=== PATIENT | male | born 1945 | race Caucasian/White ===

== ENCOUNTER 2016-11-15 09:47 | Emergency (ER) | payer MEDICARE, BC ==
[2016-11-15] MEDS ORDERED: SODIUM CHLORIDE 0.9% 1,000 ML IV ONE (09:58)
[2016-11-15 10:22] LABS: BASOPHILS # (AUTO) 0.1 10^3/uL (0.0-0.1); BASOPHILS % (AUTO) 0.9 %; EOSINOPHILS # (AUTO) 0.2 10^3/uL (0.0-0.7); HCT - HEMATOCRIT 39.9 % (42.0-52.0); HGB - HEMOGLOBIN 13.8 g/dL (14.0-18.0); LYMPHOCYTES # (AUTO) 1.2 10^3/uL (1.5-3.5); LYMPHOCYTES % (AUTO) 15.7 %; MEAN CORPUSCULAR HEMOGLOBIN 32.8 pg (27.0-31.0); MEAN CORPUSCULAR HGB CONC 34.5 g/dL (32.0-36.0); MEAN CORPUSCULAR VOLUME 95.1 fL (80.0-94.0); MEAN PLATELET VOLUME 8.1 fL (7.4-11.4); MONOCYTES # (AUTO) 0.6 10^3/uL (0.0-1.0); MONOCYTES % (AUTO) 7.9 %; NEUTROPHILS # (AUTO) 5.7 10^3/uL (1.5-6.6); NEUTROPHILS % (AUTO) 72.5 %; RED CELL DISTRIBUTION WIDTH 13.9 % (12.0-15.0); UNCORRECTED WHITE BLOOD COUNT 7.8 x10^3/uL; WHITE BLOOD COUNT 7.8 x10^3/uL (4.8-10.8)
--- NOTE | 2016-11-15 10:25 | ED Physician Documentation ---
History of Present Illness - Stated complaint Stated Complaint: STOMACH PX - Chief complaint Chief Complaint: Abd Pain - Additonal information Additional information: hx from pt healthy 71 male prior abd surgery = hernia hx diverticulitis 7 yr ago few days worsening LLQ pain no fever NVD urinary sx blood in stool Review of Systems Constitutional: denies: Fever, Chills Cardiac: denies: Chest pain / pressure Respiratory: denies: Dyspnea GI: reports: Abdominal Pain. denies: Nausea, Vomiting, Diarrhea, Bloody / black stool Endocrine: denies: Easy bruising / bleeding Immunocompromised: denies: Immunocompromised PD PAST MEDICAL HISTORY - Past Medical History Past Medical History: Yes Cardiovascular: High cholesterol GI: Diverticulitis - Past Surgical History Past Surgical History: Yes General: Colonoscopy, Other Ortho: Knee replacement - Present Medications Home Medications: Ambulatory Orders Medication Instructions Recorded Confirmed Amox/Clav 875/125 [Augmentin] 1 each PO Q12H #20 tablet 11/15/16 Aspirin Chewable [[place] 81 mg PO DAILY 11/15/16 11/15/16 Aspirin] Atorvastatin [Lipitor] 10 mg ORAL DAILY 11/15/16 11/15/16 Losartan [Cozaar] 25 mg PO DAILY 11/15/16 11/15/16 Quercetin Dihydrate 1 gm MC DAILY PRN 11/15/16 11/15/16 Saw [place] 160 mg PO DAILY 11/15/16 11/15/16 - Allergies Allergies/Adverse Reactions: Allergies Allergy/AdvReac Type Severity Reaction Status Date / Time No Known Drug Allergies Allergy Verified 11/15/16 09:54 - Social History Does the pt smoke?: No Smoking Status: Never smoker Does the pt drink ETOH?: Yes ETOH Use: Wine Does the pt have substance abuse?: No - Immunizations Immunizations are current?: Yes PD ED PE NORMAL - Vitals Vital signs reviewed: Yes - Cardiac Cardiac: RRR - Respiratory Respiratory: No respiratory distress, Clear bilaterally - Abdomen Abdomen: Soft, Other (TTP LLQ with guarding) - Derm Derm: Normal color - Neuro Neuro: Alert and oriented X 3 Results - Vitals Vitals: Vital Signs - 24 hr 11/15/16 11/15/16 09:51 11:17 Temperature 37.4 C Heart Rate 62 63 Respiratory 18 18 Rate Blood Pressure 135/84 H 115/79 O2 Saturation 98 97 Oxygen O2 Source Room air - Labs Labs: Laboratory Tests 11/15/16 11/15/16 11/15/16 10:06 10:06 11:30 WBC 7.8 RBC 4.20 L Hgb 13.8 L Hct 39.9 L MCV 95.1 H MCH 32.8 H MCHC 34.5 RDW 13.9 Plt Count 171 MPV 8.1 Neut # 5.7 Lymph # 1.2 L [place] # 0.6 Eos # 0.2 Baso # 0.1 Absolute Nucleated RBC 0.00 Nucleated RBCs 0.0 Sodium 136 Potassium 4.3 Chloride 104 Carbon Dioxide 24 Anion Gap 8.0 BUN 16 Creatinine 0.7 Estimated GFR (MDRD) 111 Glucose 119 H Calcium 9.4 Total Bilirubin 1.0 AST 23 ALT 31 Alkaline Phosphatase 80 Total Protein 7.2 Albumin 4.3 Globulin 2.9 Albumin/Globulin Ratio 1.5 Lipase 34 Urine Color YELLOW Urine Clarity CLEAR Urine pH 5.5 Ur Specific [place] 1.025 Urine Protein NEGATIVE Urine Glucose (UA) NEGATIVE Urine Ketones NEGATIVE Urine Occult Blood NEGATIVE Urine Nitrite NEGATIVE Urine Bilirubin NEGATIVE Urine Urobilinogen 0.2 (NORMAL) Ur Leukocyte Esterase NEGATIVE Ur Microscopic Review NOT INDICATED Urine Culture Comments NOT INDICATED - Rads (name of study) CT abd pelvis Radiology: See rad report (acute diverticulitis without abscess or perf, small HH) Departure - Departure Disposition: 01 Home, Self Care Clinical Impression: Diverticulitis of gastrointestinal tract Condition: Good Instructions: ED Diverticulitis, ED Diet Clear Liquid Follow-Up: Miranda Fernandes MD [Primary Care Provider] - Prescriptions: Amox/Clav 875/125 [Augmentin] 1 each PO Q12H #20 tablet Comments: Your were absoltely correct - you have diverticultiis. Thankfully the CT scan does not show any perforation or abscess So it is OK for you to go home on oral antibiotics I recommend a clear liquid diet for two days to decrease the stress on your colon Take a probiotic while you are taking the antibiotic to prevent diarrhea Follow up with your PMD for a recheck next week Return to the ER of worse in any way - even with antibiotics, even if admitted to the hospital, some cases of diverticulitis worsen and develop a perforation or abscess Recommend tylenol for the pain - stronger pain medications like narcotics will cause constipation which will worsen the problem
[2016-11-15 10:27] LABS: ALBUMIN/GLOBULIN RATIO 1.5 (1.0-2.2); CALCIUM 9.4 mg/dL (8.5-10.3); CREATININE 0.7 mg/dL (0.6-1.2); POTASSIUM 4.3 mmol/L (3.5-5.0); TOTAL PROTEIN 7.2 g/dL (6.7-8.2)
[2016-11-15 11:19] VITALS: BP 115/79
[2016-11-15 11:39] LABS: BILIRUBIN,URINE NEGATIVE (NEGATIVE); PH,URINE 5.5 PH (5.0-7.5)
[2016-11-15 11:40] LABS: UA CHARGE (STRIP ONLY) YES; UR CULTURE IF IND NOT INDICATED
--- NOTE | 2016-11-15 12:29 | CT Preliminary Report ---
Exam: CT Abdomen/Pelvis W/O IMPRESSION: 1. Colon diverticulosis with diverticulitis in the distal descending colon without drainable abscess formation or pneumoperitoneum. 2. Small hiatal hernia. 3. Other chronic findings as described. [facility] SITE ID: [id number]
--- NOTE | 2016-11-15 12:32 | CT Report ---
EXAM: CT ABDOMEN AND PELVIS EXAM DATE: 11/15/2016 10:39 AM. CLINICAL HISTORY: LLQ pain, prior history of diverticulosis. COMPARISONS: None. TECHNIQUE: Routine helical CT imaging was performed through the abdomen and pelvis. IV contrast: No. Enteric contrast: No. Reconstructions: Coronal and sagittal. In accordance with CT protocol optimization, one or more of the following dose reduction techniques w ere utilized for this exam: automated exposure control, adjustment of mA and/or KV based on patient s ize, or use of iterative reconstructive technique. FINDINGS: Lung Bases and lower chest: There is a pleural-based nodule, 4 mm in the anterior right middle lobe, likely a benign process and no further chest imaging follow-up is recommended. There is a small hiata l hernia. Liver: No contour changes or masses. Gallbladder/Bile Ducts: Unremarkable. Spleen: Normal. Pancreas: Normal. Adrenal Glands: Normal. Kidneys: No Stone, masses or hydronephrosis. Peritoneal Cavity/Bowel: 1. There is colon diverticulosis. There is thickened colon wall with adjacent fat stranding focally i n the distal descending colon without drainable abscess formation. 2. No free fluid, free air or adenopathy. No small bowel dilatation or acute inflammatory process. T he appendix is well visualized, normal . Pelvic Organs: The bladder and visualized pelvic organs are within normal limits. Vasculature: No aneurysms or other significant abnormality. Bones: No bony destructive abnormality. There is multilevel mild to severe degenerative disk disease in the spine, predominantly the L3-L4. Other: There are postop changes in the bilateral lower abdomen and groin, likely status post hernia r epair without evidence of recurrent hernia. IMPRESSION: 1. Colon diverticulosis with diverticulitis in the distal descending colon without drainable abscess formation or pneumoperitoneum. 2. Small hiatal hernia. 3. Other chronic findings as described. [facility] Referring Provider Line: [phone] SITE ID: [id number]
[2016-11-15] MEDS ORDERED: AMOX/CLAV 875 MG/125 MG TABLET PO STA (13:04)
[2016-11-15] MEDS ORDERED: AMOX/CLAV 875 MG/125 MG TABLET PO ONE (13:06)
== END 2016-11-15 13:13 | disposition home or self-care (01) ==
LOC: ED 09:47
DX: K57.92 Diverticulitis of intestine, part unspecified, without perforation or abscess without bleeding (principal); E78.00 Pure hypercholesterolemia, unspecified; Z79.82 Long term (current) use of aspirin
CPT/HCPCS: 36415; 74176; 80053; 81003; 83690; 85025; 96360; 96361; 99283; 99284; A9270; 81001; 87086